=== PATIENT | female | born 1960 | race Caucasian/White ===

== ENCOUNTER 2019-07-07 03:29 | Emergency (ER) | payer OTHER ==
[~2019-07-07] VITALS: Ht 165.1 cm; Wt 116.6 kg
--- NOTE | 2019-07-07 03:35 | NUR ---
TO BED 2 BIB EMS C/O HIGHBLOOD PRESSURE. TOOK CLONIDINE 0.1MG AND LABETALOL 100MG 1HR [employer]. PT APPEARS ANXIOUS. PT AAOX4 NO ACUTE DISTRESS NOTED, RESP EVEN AND UNLABORED. PLACE PT ON CARDIAC MONITORING, CONTINUOUS POX. ER MD AT BEDSIDE TO EVAL PT WITH ORDERS RECEIVED. WILL CARRY OUT ORDERS.
--- NOTE | 2019-07-07 04:42 | NUR ---
PT RESTING QUIETLY, NO ACUTE DISTRESS NOTED, RESP EVEN AND UNLABORED. PT AT BEDSIDE. CALL LIGHT WITHIN REACH. WILL CONTINUE TO MONITOR PT CLOSELY.
--- NOTE | 2019-07-07 05:07 | NUR ---
ER AT BEDSIDE TO RE-EVAL PT. PENDING DISPOSITION.
--- NOTE | 2019-07-07 05:16 | NUR ---
RADIOLOGY AT BEDSIDE FOR CXR
[2019-07-07 05:36] VITALS: BP 118/67
--- NOTE | 2019-07-07 05:36 | NUR ---
Patient discharged to home in stable condition. Written and verbal after care instructions given. Patient verbalizes understanding of instruction.Pt ambulatory with a steady gait
== END 2019-07-07 05:37 | disposition home or self-care (01) ==
LOC: ER 03:30
DX: I10 Essential (primary) hypertension (principal)
CPT/HCPCS: 71045-TC

== ENCOUNTER 2019-11-07 04:07 | Emergency (ER) | payer OTHER ==
[~2019-11-07] VITALS: Ht 165.1 cm; Wt 115.7 kg
[2019-11-07 04:07] VITALS: BP 147/83
--- NOTE | 2019-11-07 05:38 | NUR ---
Patient discharged to home in stable condition. Written and verbal after care instructions given. Patient verbalizes understanding of instruction. Pt ambulatory with a steady gait
== END 2019-11-07 05:39 | disposition home or self-care (01) ==
LOC: ER 04:09
DX: J21.9 Acute bronchiolitis, unspecified (principal); I10 Essential (primary) hypertension
CPT/HCPCS: 71045-TC